=== PATIENT | female | born 1980 | race African-American/Black ===

== ENCOUNTER 2017-05-01 13:23 | Inpatient (IN) | payer SELFPAY ==
[2017-05-01 13:45] LABS: #Lymphocytes 1.1 thou/uL (1.20-3.40); #Monocytes 0.3 thou/uL (0.11-0.59); #Neutrophils 5.4 thou/uL (1.40-6.50); %Basophils 0.2 % (0.0-1.0); %Eosinophils 0.2 % (0.0-10.0); %Lymphocytes 16.3 % (21.0-51.0); %Monocytes 3.8 % (0.0-10.0); Hematocrit 38.2 % (36.0-47.0); Mean Platelet Volume 9.7 fL (7.4-10.4); Red Blood Cell (RBC) Count 4.84 mill/uL (4.20-5.40); White Blood Cell (WBC) Count 6.8 thou/uL (4.8-10.8)
[2017-05-01 14:15] LABS: Troponin I 0.017 ng/mL (< 0.028)
[2017-05-01 14:29] LABS: Lactic Acid - Sepsis 1.9 mmol/L (0.5-2.2)
--- NOTE | 2017-05-01 14:29 | RAD ---
PORTABLE CHEST ONE VIEW: Date: 05-01-17 Time: 1:40 p.m. History: Chest pain, abdominal pain, nausea. FINDINGS: Comparison made with exam of 10-24-16. The heart size is normal. The lungs are expanded without focal areas of consolidation, pneumothorax or pleural effusions. IMPRESSION: No radiographic evidence of acute cardiopulmonary process. POS: OFF
[2017-05-01 14:30] LABS: ALT (SGPT) 13 U/L (8-55); AST (SGOT) 15 U/L (5-34); Alkaline Phosphatase 78 U/L (40-150); Anion Gap 15 mmol/L (10-20); BUN (Urea Nitrogen) 8 mg/dL (7.0-18.7); Bilirubin, Total 0.6 mg/dL (0.2-1.2); CK (CPK) 124 U/L (29-168); Calc. Creatinine Clearance 0 mL/min (70-130); Calcium 9.3 mg/dL (7.8-10.44); Carbon Dioxide 25 mmol/L (22-29); Chloride 94 mmol/L (98-107); Estimated GFR-MDRD 79; Globulin 4.1 g/dL (2.4-3.5); Lipase 6 U/L (8-78); Protein, Total 7.9 g/dL (6.0-8.3)
[2017-05-01] MEDS ORDERED: Ketorolac Tromethamine 30 MG/ML VIAL ONE (14:59)
[2017-05-01] MEDS ORDERED: Acetaminophen 500 MG TAB ONE (15:07)
[2017-05-01 15:29] LABS: Bilirubin Negative (Negative); Blood, Urine Large (Negative); Glucose, Urine (Dipstick) 100 mg/dL (Negative); Ketone, Urine Negative (Negative); Nitrite Positive (Negative); Protein, Urine (Dipstick) 100 mg/dL (Neg-Trace)
[2017-05-01 15:35] LABS: Bacteria/HPF 4+ HPF (None Seen); Hyaline Casts/LPF 0-3 HYALINE CAST LPF (0-3 Hyaline); RBC/HPF 21-50 HPF (0-3); Squamous Epithelial 0-3 HPF (0-3); WBC/HPF 0-3 HPF (0-3)
[2017-05-01] MEDS ORDERED: Sodium Chloride 0.9% 100 ML ONE (16:29)
[2017-05-01] MEDS ORDERED: cefTRIAXone\\ROCEPHIN 1 GM VIAL ONE (16:29)
[2017-05-01] MEDS ORDERED: Acetaminophen 650 MG Suppository PR PRN (16:44)
[2017-05-01] MEDS ORDERED: cefTRIAXone\\ROCEPHIN 1 GM in Sodium Chloride 0.9% 100 ML IVPB SCH (17:00)
[2017-05-01] MEDS ORDERED: Dextrose 50% Abboject 50 ML SYRINGE SLOW IVP PRN (17:15)
[2017-05-01] MEDS ORDERED: Dextrose 5% in Water 1,000 ML IV PRN (17:15)
--- NOTE | 2017-05-01 17:43 | HP ---
PRIMARY CARE PROVIDER: [facility] in [place]. CHIEF COMPLAINT: Fever. HISTORY OF PRESENT ILLNESS: Ms. Baig is a pleasant 36-year-old lady who was seen at [facility]. She reports that yesterday she developed throbbing headache, chest discomfort and fevers. In terms of the headache, she reports that it was a global, not accompanied by photoph obia or phonophobia, nonradiating, 10/10 at its worst, now resolved. At that time, she had no known aggravating or relieving factors. In terms of chest discomfort, she reports having thumping sensation in the chest, on and off, nonrad iating, no known aggravating or relieving factors. The chest discomfort has resolved as well. In terms of fevers, she reports that she had a temperature of 103 to 103.9 degrees Fahrenheit. She reports that it started yesterday and has been on and off since yesterday. She denies any cough. S he denies any skin rashes. She denies any pain in her neck. She denies any sick contacts. She rep orts foul smelling urine. She denies any nausea, vomiting, or diarrhea. She reports having some ab dominal discomfort yesterday, but that has resolved as well. The following complete review of systems was negative, unless otherwise mentioned in the HPI or belo w: Constitutional: Weight loss or gain, sense of well-being, ability to conduct usual activities, exer cise tolerance. Skin/Breast: Rash, itching, changes in hair growth or loss, nail changes, breast lumps, tenderness, swelling, nipple discharge. Eyes: Vision, double vision, tearing, blind spots, pain. ENT/Mouth: Headaches (location, time of onset, duration, precipitating factors), vertigo, lightheadedness, injury. Vision, double vision, tearing, blind spots, pain, nose bleeding, colds, obstruction, discharge, dental difficulties, gingival bleeding, dentures, neck stif fness, pain, tenderness, masses in thyroid or other areas. Cardiovascular: Precordial pain, substernal distress, palpitations, syncope, dyspnea on exertion, o rthopnea, nocturnal paroxysmal dyspnea, edema, cyanosis, hypertension, heart murmurs, varicosities, phlebitis, claudication. Respiratory: Pain, shortness of breath, wheezing, stridor, cough, hemoptysis, fever or night sweats Gastrointestinal: Poor appetite, dysphagia, indigestion, abdominal pain, heartburn, eructation, [place], vomiting, hematemesis, jaundice, constipation, or diarrhea, abnormal stools (libertad-colored, philly y, bloody, greasy, foul smelling), flatulence, hemorrhoids, recent changes in bowel habits. Genitourinary: Urgency, frequency, dysuria, nocturia, hematuria, polyuria, oliguria, unusual (or ch joseph in) color of urine, stones, hesitancy, change in size of stream, dribbling, acute retention or incontinence, libido, potency. Musculoskeletal: Pain, swelling, redness or heat of muscles or joints, limitation, of motion, muscu lar weakness, atrophy, cramps. Neurologic/Psychiatric: Convulsions, paralyses, tremor, incoordination, parasthesias, difficulties with memory of speech, sensory or motor disturbances, or muscular coordination (ataxia, tremor), emo tional problems, anxiety, depression, previous psychiatric care, unusual perceptions, hallucinations . Allergy/Immunologic: Skin rash, anemia, bleeding tendency, polydipsia, polyuria, intolerance to hea t or cold. PAST MEDICAL HISTORY: Significant for diabetes mellitus type 2, dyslipidemia, morbid obesity, hyper tension, hepatitis B, and depression. PAST SURGICAL HISTORY: Significant for status post cholecystectomy, status post tonsillectomy, stat us post nasal surgery for obstructive sleep apnea syndrome. FAMILY HISTORY: Significant for diabetes mellitus and hypertension. ALLERGIES: ACETAMINOPHEN. CURRENT MEDICATIONS: Metformin 1000 mg 2 times a day; lisinopril 20 mg daily; Humulin 70/30 insulin , dose to be clarified. SOCIAL HISTORY: The patient denies tobacco use, alcohol use or recreational drug use. PHYSICAL EXAMINATION: GENERAL: Ms. Baig is awake and alert, not in acute distress. She is morbidly obese. VITAL SIGNS: Blood pressure is 120/87, pulse is 93. She is breathing at rate of 20 and saturating 95% on room air. Her current temperature is 99.7 degrees Fahrenheit. When she presented to the [facility] room, she had a pulse of 112 and temperature of 101.2 degrees Fahrenheit. EYES: No scleral icterus. No conjunctival pallor. ENT: Dry mucosal membranes, no oropharyngeal erythema or exudates. NECK: Supple, nontender, normal range of movement, trachea is midline. RESPIRATORY: Accessory muscles of breathing are not active. Chest wall movements are symmetric antonio aterally. LUNGS: Clear to auscultation without wheeze, rhonchi or crepitations. CARDIOVASCULAR: S1 and S2 are heard, regular. Peripheral pulses palpable. No pericardial rub, no carotid bruit. ABDOMEN: Distended, nontender, bowel sounds heard, no hepatomegaly, no splenomegaly. NEUROLOGIC: Cranial nerves II-XII are intact. Deep tendon reflexes are 2+. MUSCULOSKELETAL: Power is 5/5 in all 4 extremities. Normal range of movement at all major extremit y joints. SKIN: No rashes or subcutaneous nodules. LYMPHATIC: No cervical lymphadenopathy. PSYCHIATRIC: Normal mood. Normal affect. Patient is oriented to time, place, and person. LABORATORY DATA: Ms. Baig's labs and investigations were reviewed. She had a chest x-ray, which di d not show any pulmonary infiltrates. Laboratory investigation shows normal white count, normal hem oglobin, normal platelet count, decreased sodium of 130, normal creatinine of 0.97 and unremarkable liver profile. Troponin I is normal. Urinalysis shows protein, glucose, blood, nitrite and bacteri a. ASSESSMENT AND PLAN: Ms. Baig is a pleasant 36-year-old lady who was seen at [facility] on 05/01/2017. Her problem list includes: 1. Sepsis: Ms. Baig's presentation meets the criteria for sepsis, suspected source of infection in the urinary tract. 2. Urinary tract infection. Ms. Baig will be admitted to the hospital and treated with fluid resus citation as well as intravenous antibiotics in the form of ceftriaxone. 3. Diabetes mellitus. Home medications to be resumed once clarified, insulin sliding scale to be s tarted. Accu-Cheks to be started. 4. Hypertension: Continue home medications, monitor vital signs and titrate antihypertensives as n eeded. 5. Dyslipidemia: It is unclear whether the patient is taking a statin now. We will resume once cl arified. Otherwise, she will need to follow up with her primary care provider and start medication if needed. 6. Hepatitis B: Stable. Many thanks for allowing me to participate in your patient's care. Please feel free to contact me w ith any questions or concerns. LEVEL OF RISK: Moderate. LEVEL OF COMPLEXITY: Moderate.
[2017-05-01] MEDS: Sodium Chloride 0.9% 1,000 ML IV SCH (18:26)
[2017-05-01 18:37] VITALS: BMI 53.2
[2017-05-01] MEDS ORDERED: Ondansetron HCl/PF 4 MG/2 ML Vial IVP PRN (18:40)
[2017-05-01] MEDS ORDERED: Ondansetron ODT 4 MG TAB SL PRN (18:40)
[2017-05-01] MEDS: Acetaminophen 325 MG TAB PO PRN (19:58)
[2017-05-01] MEDS: Pravastatin Sodium 40 MG TAB PO SCH (19:58)
[2017-05-01] MEDS: Metoprolol Tartrate 25 MG TAB PO SCH (19:59)
[2017-05-01] MEDS: HumaLOG 300 UNITS/3 ML VIAL SC PRN (21:35)
[2017-05-02] MEDS: Acetaminophen 325 MG TAB PO PRN ×2 (02:23→15:25)
[2017-05-02] MEDS: traMADol HCl 50 MG TAB PO PRN ×2 (05:09→12:27)
[2017-05-02] MEDS: Sodium Chloride 0.9% 1,000 ML IV SCH ×2 (05:10→15:52)
[2017-05-02 05:43] LABS: #Eosinphils 0.1 thou/uL (0.0-0.7); #Monocytes 0.2 thou/uL (0.11-0.59); #Neutrophils 4.8 thou/uL (1.40-6.50); %Basophils 0.6 % (0.0-1.0); %Eosinophils 0.8 % (0.0-10.0); %Monocytes 3.9 % (0.0-10.0); Hematocrit 33.8 % (36.0-47.0); Mean Platelet Volume 9.9 fL (7.4-10.4); Red Blood Cell (RBC) Count 4.22 mill/uL (4.20-5.40); White Blood Cell (WBC) Count 6.1 thou/uL (4.8-10.8)
[2017-05-02 05:55] LABS: Anion Gap 14 mmol/L (10-20); BUN (Urea Nitrogen) 11 mg/dL (7.0-18.7); Calc. Creatinine Clearance 188 mL/min (70-130); Calcium 8.5 mg/dL (7.8-10.44); Carbon Dioxide 20 mmol/L (22-29); Chloride 101 mmol/L (98-107); Estimated GFR-MDRD 84
[2017-05-02] MEDS: HumaLOG 300 UNITS/3 ML VIAL SC PRN ×3 (06:06→17:30)
[2017-05-02] MEDS ORDERED: NPH, Human Insulin Isophane 300 UNIT/3 ML VIAL SC SCH (09:00)
[2017-05-02] MEDS: Metoprolol Tartrate 25 MG TAB PO SCH ×2 (09:35→21:30)
[2017-05-02] MEDS: Enoxaparin Sodium 40 MG/0.4 ML SYRINGE SC SCH (09:35)
[2017-05-02] MEDS: Lisinopril/Hydrochlorothiazide 20/25 mg Tablet PO SCH (11:52)
--- NOTE | 2017-05-02 15:17 | PDOC.PN ---
- Subjective Encounter Start Date: 05/02/17 Encounter Start Time: 12:30 Subjective: feels better, no nausea or abd pain - Objective MAR Reviewed: Yes Vital Signs & Weight: Vital Signs (12 hours) Temp Pulse Resp BP Pulse Ox 05/02/17 07:36 98.3 F 85 18 151/94 H 94 L 05/02/17 04:00 98.5 F 84 18 144/85 H 94 L Result Diagrams: 05/02/17 04:56 05/02/17 04:56 Additional Labs: Accuchecks 05/02/17 05/02/17 05/01/17 12:30 05:43 21:25 POC Glucose 233 H 257 H 331 H Phys Exam - Physical Examination HEENT: PERRLA, moist MMs Neck: no nodes, no JVD Respiratory: no wheezing, no rales Cardiovascular: RRR, no significant murmur Gastrointestinal: soft, non-tender, no distention, positive bowel sounds Musculoskeletal: no edema, pulses present Neurological: non-focal, moves all 4 limbs Psychiatric: A&O x 3 Dx/Plan (1) Sepsis Code(s): A41.9 - SEPSIS, UNSPECIFIED ORGANISM Status: Acute Qualifiers: Sepsis type: sepsis due to unspecified organism Qualified Code(s): A41.9 - Sepsis, unspecified organism (2) UTI (urinary tract infection) Status: Acute Qualifiers: Urinary tract infection type: acute cystitis Hematuria presence: without hematuria Qualified Code(s): N30.00 - Acute cystitis without hematuria (3) DM type 2 (diabetes mellitus, type 2) Status: Chronic Qualifiers: Diabetes mellitus complication status: with hyperglycemia 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: with petroleum products district supervisor use Qualified Code(s): E11.65 - Type 2 diabetes mellitus with hyperglycemia; Z79.4 - sales/marketing (current) use of insulin; Z79.4 - MCC (current) use of insulin; Z79.4 - MCC ( current) use of insulin; Z79.4 - sales/marketing (current) use of insulin (4) Morbid obesity Code(s): E66.01 - MORBID (SEVERE) OBESITY DUE TO EXCESS CALORIES Status: Chronic (5) HTN (hypertension) Code(s): I10 - ESSENTIAL (PRIMARY) HYPERTENSION Status: Chronic Qualifiers: Hypertension type: essential hypertension Qualified Code(s): I10 - Essential (primary) hypertension - Plan is on ceftrixone -: await urine cs results -: nph 40u bid -: has life threatening obesity, counselled reg lifestyle changes, diet and ex -: -ercises. Has h/o hep B, she is not sure if got treated * . Review of Systems - Medications/Allergies Allergies/Adverse Reactions: Allergies Allergy/AdvReac Type Severity Reaction Status Date / Time No Known Allergies Allergy Verified 05/01/17 18:31 Medications: Current Medications Acetaminophen (Tylenol) 650 mg PO Q4H PRN PRN Reason: Headache/Fever or Pain Last Admin: 05/02/17 02:23 Dose: 650 mg Acetaminophen (Tylenol) 650 mg WI Q4H PRN PRN Reason: Headache/Fever or Pain Dextrose/Water (Dextrose 50%) 25 gm SLOW IVP PRN PRN PRN Reason: Hypoglycemia Enoxaparin Sodium (Lovenox) 40 mg SC 0900 [facility] Last Admin: 05/02/17 09:35 Dose: 40 mg Glucagon (Glucagon) 1 mg IM PRN PRN PRN Reason: Hypoglycemia Lisinopril/HCTZ (Prinizide 20-25) 1 tab PO DAILY [facility] Last Admin: 05/02/17 11:52 Dose: 1 tab Sodium Chloride (Normal Saline 0.9%) 1,000 mls @ 100 mls/hr IV .Q10H [facility] Last Admin: 05/02/17 05:10 Dose: 1,000 mls Dextrose/Water (D5w) 1,000 mls @ 0 mls/hr IV .Q0M PRN; As Directed PRN Reason: Hypoglycemia Ceftriaxone Sodium 1 gm/ (Sodium Chloride) 100 mls @ 200 mls/hr IVPB Q24HR [facility] Insulin Human Lispro (Humalog) 0 units SC .MILD SLIDING SCALE PRN PRN Reason: Mild Correctional Scale Last Admin: 05/02/17 12:31 Dose: 4 unit Insulin Human NPH (Humulin N) 40 unit SC BID [facility] Metformin HCl (Glucophage) 1,000 mg PO BID-WM [facility] Last Admin: 05/02/17 09:35 Dose: 1,000 mg Metoprolol Tartrate (Lopressor) 25 mg PO BID [facility] Last Admin: 05/02/17 09:35 Dose: 25 mg Pravastatin Sodium (Pravachol) 40 mg PO HS [facility] Last Admin: 05/01/17 19:58 Dose: 40 mg Sodium Chloride (Flush - Normal Saline) 10 ml IVF Q12HR [facility] Last Admin: 05/02/17 11:53 Dose: Not Given Sodium Chloride (Flush - Normal Saline) 10 ml IVF PRN PRN PRN Reason: Saline Flush Tramadol HCl (Ultram) 50 mg PO Q6H PRN PRN Reason: Pain Last Admin: 05/02/17 12:27 Dose: 50 mg
[2017-05-02 16:32] LABS: Troponin I 0.015 ng/mL (< 0.028)
[2017-05-02] MEDS: Morphine Sulfate 2 MG/ML SYRINGE SLOW IVP PRN ×2 (16:38→21:34)
[2017-05-02] MEDS ORDERED: cefTRIAXone\\ROCEPHIN 1 GM VIAL ONE (16:40)
[2017-05-02] MEDS ORDERED: cefTRIAXone\\ROCEPHIN 1 GM in Sodium Chloride 0.9% 100 ML IVPB SCH (17:00)
[2017-05-02 19:10] LABS: Troponin I 0.012 ng/mL (< 0.028)
[2017-05-02] MEDS: Pravastatin Sodium 40 MG TAB PO SCH (21:30)
[2017-05-02] MEDS: NPH, Human Insulin Isophane 300 UNIT/3 ML VIAL SC SCH (21:32)
[2017-05-03] MEDS: Morphine Sulfate 2 MG/ML SYRINGE SLOW IVP PRN (03:16)
[2017-05-03 05:59] LABS: #Eosinphils 0.1 thou/uL (0.0-0.7); #Lymphocytes 2.1 thou/uL (1.20-3.40); #Monocytes 0.4 thou/uL (0.11-0.59); #Neutrophils 2.5 thou/uL (1.40-6.50); %Basophils 0.2 % (0.0-1.0); %Eosinophils 1.6 % (0.0-10.0); %Lymphocytes 41.5 % (21.0-51.0); %Monocytes 7.5 % (0.0-10.0); Mean Platelet Volume 9.8 fL (7.4-10.4); Red Blood Cell (RBC) Count 4.24 mill/uL (4.20-5.40)
[2017-05-03 06:24] LABS: Anion Gap 13 mmol/L (10-20); BUN (Urea Nitrogen) 8 mg/dL (7.0-18.7); Calc. Creatinine Clearance 213 mL/min (70-130); Calcium 9.2 mg/dL (7.8-10.44); Carbon Dioxide 25 mmol/L (22-29); Chloride 100 mmol/L (98-107); Estimated GFR-MDRD Greater than 90
[2017-05-03 07:51] VITALS: TEMP 99
[2017-05-03] MEDS: Enoxaparin Sodium 40 MG/0.4 ML SYRINGE SC SCH (08:04)
[2017-05-03] MEDS: Lisinopril/Hydrochlorothiazide 20/25 mg Tablet PO SCH (08:05)
[2017-05-03] MEDS: Metoprolol Tartrate 25 MG TAB PO SCH (08:05)
[2017-05-03] MEDS: NPH, Human Insulin Isophane 300 UNIT/3 ML VIAL SC SCH (08:05)
[2017-05-03 08:11] VITALS: BP 120/73
--- NOTE | 2017-05-03 16:50 | PDOC.PN ---
- Subjective Encounter Start Date: 05/03/17 Encounter Start Time: 07:50 Subjective: feels better, no abd or chest pain -: is amb in room - Objective MAR Reviewed: Yes Vital Signs & Weight: Vital Signs (12 hours) Temp Pulse Resp BP BP Pulse Ox 05/03/17 08:05 120/73 05/03/17 08:00 99 F 79 16 96 05/03/17 07:50 99 F 79 16 118/78 96 I&O: 05/02/17 05/03/17 05/04/17 06:59 06:59 06:59 Intake Total 720 Balance 720 Result Diagrams: 05/03/17 05:24 05/03/17 05:24 Additional Labs: Accuchecks 05/03/17 05/03/17 05/02/17 10:58 05:04 20:38 POC Glucose 152 H 158 H 167 H 05/02/17 16:30 POC Glucose 183 H Phys Exam - Physical Examination HEENT: PERRLA, moist MMs Neck: no JVD, supple Respiratory: no wheezing, no rales Cardiovascular: RRR, no significant murmur Gastrointestinal: soft, non-tender, positive bowel sounds Musculoskeletal: no edema, pulses present Neurological: non-focal, moves all 4 limbs Psychiatric: A&O x 3 Dx/Plan (1) Sepsis Code(s): A41.9 - SEPSIS, UNSPECIFIED ORGANISM Status: Acute Qualifiers: Sepsis type: sepsis due to unspecified organism Qualified Code(s): A41.9 - Sepsis, unspecified organism (2) UTI (urinary tract infection) Status: Acute Qualifiers: Urinary tract infection type: acute cystitis Hematuria presence: without hematuria Qualified Code(s): N30.00 - Acute cystitis without hematuria (3) DM type 2 (diabetes mellitus, type 2) Status: Chronic Qualifiers: Diabetes mellitus complication status: with hyperglycemia Diabetes mellitus snf insulin use: with oysterman use Qualified Code(s): E11.65 - Type 2 diabetes mellitus with hyperglycemia; Z79.4 - MCFP (current) use of insulin; 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 * .
--- NOTE | 2017-05-03 22:12 | DIS ---
DATE OF ADMISSION: 05/01/2017 DATE OF DISCHARGE: 05/03/2017 DISCHARGE DISPOSITION: To home. PRIMARY DISCHARGE DIAGNOSES: Sepsis, urinary tract infection. SECONDARY DISCHARGE DIAGNOSES: Morbid obesity, diabetes mellitus type 2, hypertension. PROCEDURES DONE DURING HOSPITALIZATION: Chest x-ray done on the day of admission showed no acute ca rdiopulmonary process. Urine culture grew Enterobacter aerogenes sensitive to quinolones. Influenz a A and B antigens were negative. Blood cultures x2 no growth. DISCHARGE MEDICATIONS: Patient to continue ciprofloxacin 500 mg p.o. twice daily for another 5 days , NPH insulin 70/30, 35 units subcu twice daily, lisinopril with hydrochlorothiazide 20/25 mg p.o. d aily, metoprolol 25 mg p.o. twice daily, Pravachol 40 mg p.o. at bedtime, metformin 1000 mg p.o. twi ce daily. ALLERGIES: No known drug allergies. DISCHARGE PLAN: Patient to follow up with primary care physician in 1 week. BRIEF COURSE DURING HOSPITALIZATION: The patient initially got admitted on the with complaints of fever. She had a temperature of 103 at home. Patient also was found to have had urinary tract infection. She was essentially admitted for sepsis with urinary tract infection. The patient was p laced on broad-spectrum antibiotics along with generous IV hydration. Her cultures have grown Enter obacter aerogenes sensitive to quinolones. The patient is hemodynamically stable and will be shortl y discharged home on ciprofloxacin. She has been counseled with regards to her morbid obesity for l ifestyle changes and diet modification, along with a possible outpatient appointment with the [facility] surgeon to see for ways to reduce her weight. Please see a [id number] documentation on [facility] for the day of discharge.
== END 2017-05-03 12:03 | disposition home or self-care (01) | DRG 872 ==
LOC: ERS 13:23 → T4-B 16:26
PROVIDERS: ADMIT Internal Medicine; ATTEND Internal Medicine
DX: A41.9 Sepsis, unspecified organism (principal); Z68.43 Body mass index [BMI] 50.0-59.9, adult; I10 Essential (primary) hypertension; N30.00 Acute cystitis without hematuria; B19.10 Unspecified viral hepatitis B without hepatic coma; B96.89 Other specified bacterial agents as the cause of diseases classified elsewhere; E66.01 Morbid (severe) obesity due to excess calories; E11.9 Type 2 diabetes mellitus without complications; Z79.4 Long term (current) use of insulin; E78.5 Hyperlipidemia, unspecified; F32.9 Major depressive disorder, single episode, unspecified
CPT/HCPCS: 36415; 36416; 71010; 80048; 80053; 80074; 81003; 81015; 81025; 82553; 83605; 83690; 84484; 85025; 87040; 87077; 87086; 87186; 93005; 93010; 96361; 96365; 96375; A4216; J0696; J1650; J1815; J1885; J2270; J2405; J7050

== ENCOUNTER 2017-10-10 21:19 | Emergency (ER) | payer SELFPAY ==
[2017-10-10 21:44] LABS: Bilirubin Negative (Negative); Blood, Urine Negative (Negative); Clarity CLEAR (Clear); Glucose, Urine (Dipstick) >=1000 mg/dL (Negative); Leukocyte Negative (Negative); Nitrite Negative (Negative); Pregnancy Test - Urine (BHCG) Negative (Negative); Pregu Control Background? CLEAR/WHITE (CLR/WHITE); Pregu Control Bar Appear? YES (CONTROL BAR); Protein, Urine (Dipstick) Negative (Neg-Trace); Specific Gravity 1.033 (1.002-1.036); Specific Gravity, Urine 1.033 (1.002-1.036); pH, Urine 6.5 (5.0-9.0)
[2017-10-10 21:45] LABS: #Basophils 0.1 thou/uL (0.0-0.2); #Eosinphils 0.2 thou/uL (0.0-0.7); #Lymphocytes 3.6 thou/uL (1.20-3.40); #Monocytes 0.2 thou/uL (0.11-0.59); #Neutrophils 4.2 thou/uL (1.40-6.50); %Basophils 1.3 % (0.0-1.0); %Eosinophils 2.9 % (0.0-10.0); %Lymphocytes 43.1 % (21.0-51.0); %Monocytes 2.3 % (0.0-10.0); %Neutrophils 50.4 % (42.0-75.0); Hemoglobin 12.4 g/dL (12.0-16.0); Mean Corpuscular HGB CONC 35.2 g/dL (32.0-36.0); Mean Corpuscular Hemoglobin 26.7 pg (27.0-31.0); Mean Corpuscular Volume 75.9 fl (81.0-99.0); Mean Platelet Volume 9.6 fL (7.4-10.4); Platelet Count 179 thou/uL (130-400); RBC Distribution Width 15.2 % (11.5-14.5); Red Blood Cell (RBC) Count 4.64 mill/uL (4.20-5.40); White Blood Cell (WBC) Count 8.2 thou/uL (4.8-10.8)
[2017-10-10 22:12] LABS: CKMB 1.3 ng/mL (0-6.6); Troponin I Less than 0.010 ng/mL (< 0.028)
[2017-10-10 22:29] LABS: ALT (SGPT) 13 U/L (8-55); AST (SGOT) 16 U/L (5-34); Albumin 3.8 g/dL (3.5-5.0); Alkaline Phosphatase 93 U/L (40-150); Anion Gap 12 mmol/L (10-20); BUN (Urea Nitrogen) 9 mg/dL (7.0-18.7); Bilirubin, Total 0.3 mg/dL (0.2-1.2); Calc. Creatinine Clearance 0 mL/min (70-130); Calcium 9.5 mg/dL (7.8-10.44); Carbon Dioxide 27 mmol/L (22-29); Chloride 95 mmol/L (98-107); Estimated GFR-MDRD 71; Glucose 398 mg/dL (70-105); Lipase 15 U/L (8-78); Potassium 4.1 mmol/L (3.5-5.1); Protein, Total 8.8 g/dL (6.0-8.3); Sodium 130 mmol/L (136-145)
--- NOTE | 2017-10-10 22:40 | RAD ---
RADIOGRAPH CHEST 2 VIEWS: 10/10/17 HISTORY: 37-year-old female with acute chest pain. FINDINGS: There is no air space density, pulmonary edema, pleural effusion, pneumothorax, or cardiomegaly. IMPRESSION: No acute cardiopulmonary findings. quique [] POS: NGOZI
[2017-10-11] MEDS ORDERED: Insulin Detemir 100 UNITS/ML 40 UNITS in Pre-Filled Syringe 1 EACH SC SCH (01:45)
== END 2017-10-11 02:28 | disposition home or self-care (01) ==
LOC: ERS 21:19
DX: R07.9 Chest pain, unspecified (principal); E11.65 Type 2 diabetes mellitus with hyperglycemia; I10 Essential (primary) hypertension; E78.5 Hyperlipidemia, unspecified; K72.90 Hepatic failure, unspecified without coma; F32.9 Major depressive disorder, single episode, unspecified
CPT/HCPCS: 36415; 71046; 80053; 81003; 81025; 82553; 83690; 84484; 85025; 93005; 96372; J1815

== ENCOUNTER 2017-12-22 13:02 | Emergency (ER) | payer SELFPAY ==
[2017-12-22] MEDS ORDERED: Ondansetron ODT 8 MG TAB ONE (13:33)
[2017-12-22 14:43] LABS: Troponin I Less than 0.010 ng/mL (< 0.028)
== END 2017-12-22 14:47 | disposition home or self-care (01) ==
LOC: ERS 13:02
DX: I10 Essential (primary) hypertension (principal); K02.9 Dental caries, unspecified; Z86.73 Personal history of transient ischemic attack (TIA), and cerebral infarction without residual deficits; E11.9 Type 2 diabetes mellitus without complications; E78.5 Hyperlipidemia, unspecified; F32.9 Major depressive disorder, single episode, unspecified
CPT/HCPCS: 36415; 99285

== ENCOUNTER 2018-05-01 17:12 | Observation (INO) | payer SELFPAY ==
[~2018-05-01 17:12] MED LIST: ISOVUE-370 76%-LOCM 1 ML ONE
[2018-05-01] MEDS ORDERED: Ondansetron HCl/PF 4 MG/2 ML Vial ONE (17:55)
[2018-05-01] MEDS ORDERED: methylPREDNISolone Sod Succ/PF 125 MG/2 ML VIAL ONE (17:55)
[2018-05-01 18:47] LABS: #Eosinphils 0.2 thou/uL (0.0-0.7); #Lymphocytes 1.5 thou/uL (1.20-3.40); #Monocytes 0.2 thou/uL (0.11-0.59); #Neutrophils 6.4 thou/uL (1.40-6.50); %Basophils 0.2 % (0.0-1.0); %Eosinophils 1.8 % (0.0-10.0); %Lymphocytes 18.5 % (21.0-51.0); %Monocytes 2.3 % (0.0-10.0); %Neutrophils 77.2 % (42.0-75.0); Hemoglobin 12.9 g/dL (12.0-16.0); Mean Corpuscular HGB CONC 32.5 g/dL (32.0-36.0); Mean Corpuscular Hemoglobin 25.1 pg (27.0-31.0); Mean Corpuscular Volume 77.4 fL (78.0-98.0); Mean Platelet Volume 9.6 fL (7.4-10.4); Platelet Count 211 thou/uL (130-400); RBC Distribution Width 15.1 % (11.5-14.5); Red Blood Cell (RBC) Count 5.14 mill/uL (4.20-5.40); White Blood Cell (WBC) Count 8.3 thou/uL (4.8-10.8)
[2018-05-01 18:53] LABS: BHCG - Serum Negative (NEGATIVE); Pregs Control Background? CLEAR/WHITE (CLR/WHITE); Pregs Control Bar Appear? YES (CONTROL BAR)
[2018-05-01 19:13] LABS: ALT (SGPT) 14 U/L (8-55); AST (SGOT) 33 U/L (5-34); Albumin 4.3 g/dL (3.5-5.0); Alkaline Phosphatase 86 U/L (40-150); Anion Gap 20 mmol/L (10-20); BUN (Urea Nitrogen) 12 mg/dL (7.0-18.7); Bilirubin, Total 0.4 mg/dL (0.2-1.2); Calc. Creatinine Clearance 0 mL/min (70-130); Calcium 9.9 mg/dL (7.8-10.44); Carbon Dioxide 22 mmol/L (22-29); Chloride 97 mmol/L (98-107); Estimated GFR-MDRD 72; Globulin 5.3 g/dL (2.4-3.5); Glucose 315 mg/dL (70-105); Potassium 4.7 mmol/L (3.5-5.1); Protein, Total 9.6 g/dL (6.0-8.3); Sodium 134 mmol/L (136-145); Troponin I Less than 0.010 ng/mL (< 0.028)
[2018-05-01] MEDS ORDERED: hydrALAZINE 20 MG/ML VIAL ONE ×2 (19:45→21:08)
--- NOTE | 2018-05-01 20:51 | RAD ---
AP CHEST: 05/01/18 HISTORY: Chest pain and cough. COMPARISON: 05/01/17. Heart size is upper normal. The vascular markings are prominent but stable from prior exam. No eviden ce of infiltrate or effusion. No interval change noted. IMPRESSION: Stable chest findings without evidence of acute interval change. POS: AGW
[2018-05-01] MEDS ORDERED: diphenhydrAMINE 12.5 MG/5 ML UDCUP ONE (21:08)
[2018-05-01] MEDS ORDERED: Metoclopramide HCl 10 MG/2 ML VIAL ONE (21:08)
[2018-05-01] MEDS ORDERED: diphenhydrAMINE 25 MG CAP ONE (21:12)
[2018-05-01 21:35] LABS: Bilirubin Negative (Negative); Blood, Urine Trace (Negative); Clarity CLOUDY (Clear); Glucose, Urine (Dipstick) >=1000 mg/dL (Negative); Leukocyte Negative (Negative); Nitrite Negative (Negative); Protein, Urine (Dipstick) 30 mg/dL (Neg-Trace); Specific Gravity, Urine 1.034 (1.002-1.036)
[2018-05-01 21:37] LABS: Pregnancy Test - Urine (BHCG) Negative (Negative); Pregu Control Background? CLEAR/WHITE (CLR/WHITE); Pregu Control Bar Appear? YES (CONTROL BAR); Specific Gravity 1.034 (1.002-1.036)
[2018-05-01 21:44] LABS: Bacteria/HPF 4+ HPF (None Seen); Hyaline Casts/LPF 0-3 HYALINE CAST LPF (0-3 Hyaline); Pathc Cast-AUWi Flag 0.43 (0-2.49); RBC/HPF 0-3 HPF (0-3); Squamous Epithelial 0-3 HPF (0-3)
[2018-05-01] MEDS ORDERED: cloNIDine 0.1 MG TAB ONE (22:24)
[2018-05-01] MEDS ORDERED: cefTRIAXone\\ROCEPHIN 2 GM VIAL ONE (22:24)
--- NOTE | 2018-05-01 23:11 | CT ---
CT PULMONARY ANGIOGRAM WITH IV CONTRAST AND 3D POSTPROCESSIN05/01/18 HISTORY: Chest pain. Shortness of breath. FINDINGS: No filling defects are seen in the pulmonary artery vasculature to suggest pulmonary embolism. The th oracic aorta is also well opacified without aneurysm or dissection. No pleural or pericardial effusio ns are seen. No pneumothoraces, focal areas of consolidation, lung masses/pulmonary nodules are seen. No acute osseous abnormalities are identified. Upper abdominal tomograms demonstrate postop changes of cholecystectomy. IMPRESSION: No CT evidence of pulmonary embolism. POS: [facility]
[2018-05-01 23:29] LABS: Troponin I Less than 0.010 ng/mL (< 0.028)
[2018-05-02] MEDS ORDERED: Ondansetron HCl/PF 4 MG/2 ML Vial IVP PRN (00:52)
[2018-05-02] MEDS ORDERED: Acetaminophen 325 MG TAB PO PRN (00:52)
[2018-05-02] MEDS ORDERED: Ondansetron ODT 4 MG TAB SL PRN (00:52)
[2018-05-02 01:27] VITALS: BMI 51.8
[2018-05-02 01:59] LABS: Troponin I Less than 0.010 ng/mL (< 0.028)
[2018-05-02] MEDS ORDERED: Dextrose 5% in Water 1,000 ML IV PRN (02:07)
[2018-05-02] MEDS ORDERED: Dextrose 50% Abboject 50 ML SYRINGE IVP PRN (02:07)
[2018-05-02] MEDS: HumaLOG 300 UNITS/3 ML VIAL SC PRN ×4 (02:34→17:00)
[2018-05-02] MEDS ORDERED: cloNIDine 0.1 MG TAB PO PRN (03:15)
[2018-05-02 05:09] LABS: #Eosinphils 0.1 thou/uL (0.0-0.7); #Lymphocytes 0.9 thou/uL (1.20-3.40); #Monocytes 0.1 thou/uL (0.11-0.59); #Neutrophils 8.3 thou/uL (1.40-6.50); %Basophils 0.2 % (0.0-1.0); %Eosinophils 0.6 % (0.0-10.0); %Lymphocytes 9.3 % (21.0-51.0); %Monocytes 0.6 % (0.0-10.0); %Neutrophils 89.3 % (42.0-75.0); Hemoglobin 11.8 g/dL (12.0-16.0); Mean Corpuscular HGB CONC 32.2 g/dL (32.0-36.0); Mean Corpuscular Hemoglobin 25.2 pg (27.0-31.0); Mean Corpuscular Volume 78.2 fL (78.0-98.0); Mean Platelet Volume 10.1 fL (7.4-10.4); Platelet Count 210 thou/uL (130-400); RBC Distribution Width 15.3 % (11.5-14.5); Red Blood Cell (RBC) Count 4.67 mill/uL (4.20-5.40); White Blood Cell (WBC) Count 9.3 thou/uL (4.8-10.8)
[2018-05-02 05:36] LABS: Anion Gap 18 mmol/L (10-20); BUN (Urea Nitrogen) 12 mg/dL (7.0-18.7); Calc. Creatinine Clearance 183 mL/min (70-130); Calcium 9.2 mg/dL (7.8-10.44); Carbon Dioxide 16 mmol/L (22-29); Chloride 100 mmol/L (98-107); Estimated GFR-MDRD 81; Glucose 453 mg/dL (70-105); Potassium 4.1 mmol/L (3.5-5.1); Sodium 130 mmol/L (136-145)
[2018-05-02] MEDS: Lisinopril/Hydrochlorothiazide 20 mg/12.5 mg Tablet PO SCH (08:41)
[2018-05-02] MEDS: Enoxaparin Sodium 40 MG/0.4 ML SYRINGE SC SCH (08:41)
[2018-05-02] MEDS: Insulin NPH/Reg Insulin Hm 300 UNITS/3 ML VIAL SC SCH ×2 (08:47→21:01)
[2018-05-02] MEDS ORDERED: Nitroglycerin 0.4 MG TAB (25 Tab Bottle) PO PRN (10:00)
--- NOTE | 2018-05-02 12:04 | HP ---
PRIMARY CARE PHYSICIAN: No PCP. CODE STATUS: Full code. TIME OF EVALUATION: 12:25 a.m. CHIEF COMPLAINT: Chest pain and headache. HISTORY OF PRESENT ILLNESS: This is a 37-year-old female with past medical history of high blood pre ssure, morbid obesity, diabetes type 2, hepatitis B, hyperlipidemia, hypertension, came to the hospit al after having chest pain, shortness of breath, associated with headache, all related to the patient having very high blood pressure was systolic in the 220s and diastolic in the 1-teens. The patient was seen in the ER, blood pressure was managed and brought down and the symptoms have improved now. The patient had no fever, no chills, also she was found to have very high blood sugar, she reported t hat for the past week she ran out of medications, has not been taking any medications at home. REVIEW OF SYSTEMS: CONSTITUTIONAL: No fever or chills or generalized weakness. RESPIRATORY: No cough, sputum production, shortness of breath. CARDIOVASCULAR: The patient had chest pain, no palpitation. GASTROINTESTINAL: No nausea, no vomiting, diarrhea or abdominal pain. SAFETY ASSISTANT: The patient has a headache, was feeling lightheaded GENITOURINARY: No burning on urination. EXTREMITIES: Bilateral leg swelling with chronic atrophic changes. All other systems were reviewed and negative except for the findings mentioned above. PAST MEDICAL HISTORY: Positive for findings mentioned in the HPI. PAST SURGICAL HISTORY: Cholecystectomy, tonsillectomy. PSYCHIATRIC HISTORY: Depression. SOCIAL HISTORY: No alcohol, no drugs. No smoking history. She lives at home with parent. FAMILY HISTORY: History of coronary artery disease, congestive heart failure. ALLERGIES: No known drug allergies. REPORTED MEDICATIONS: Lisinopril, hydrochlorothiazide and NovoLog mix 70/30. PHYSICAL EXAMINATION: VITAL SIGNS: On presentation, blood pressure 157/88, heart rate 117, respiratory rate 16, temperatur e 99.1, pain 8/10, O2 saturation 95 on room air. GENERAL APPEARANCE: The patient is alert, oriented, in no acute distress, alert and oriented. HEENT: Eyes; normal conjunctivae. Oral mucosa moist. NECK: No JVD. RESPIRATORY: Bilateral air entry, no rales or wheezes. Symmetric expansion. CARDIOVASCULAR: Normal rate, regular rhythm. No murmurs or gallop. No edema. ABDOMEN: Soft, normal bowel sounds. MUSCULOSKELETAL: Baseline range of motion and strength. No tenderness. SKIN: Warm and dry. No pallor, no rash or redness. Peripheral pulses are present. Capillary refil l seems to be intact. NEUROLOGIC: No evidence of any new focal weakness. Cranial nerves II through XII seems to be intact . PSYCHIATRIC: The patient is in a good mood. No anxiety, oriented, optimal judgment. EKG was reviewed. The patient has sinus tachycardia. RADIOLOGY: Chest CT was negative with contrast, no pulmonary emboli. LABORATORY: Labs were reviewed. The patient has a white count 9.3, hemoglobin 11.8, platelet count 211. Chemistry: Sodium 134, potassium 4.7, chloride 97, carbon dioxide 22, anion gap 20, BUN 12, cr eatinine 1.0, GFR 72, glucose 315, calcium 9.9, total bilirubin 0.4, AST 33, ALT 14, alkaline phospha tase 86. Troponin was negative x3. Serum total protein 9.6, albumin 4.3, globulin 5.3, albumin brittany bulin ratio 0.8. ____ was negative. UA was done and showed some mild white counts in urine 4-6. ASSESSMENT AND PLAN: The patient will be placed in the hospital for the following medical problems. 1. Hypertensive urgency. The patient came in with headache, chest pain, blood pressure in the 200 s ystolic and diastolic in the 1-teens. After blood pressure came down, all symptoms had disappeared. The patient has no elevated troponin, no brain damage from high blood pressure. No kidney failure, we will continue to monitor blood pressure and will adjust medications. Most likely this is due to n oncompliance. I have explained in detail with the patient regarding risk of not being compliant with medications. 2. Uncontrolled diabetes. Blood sugar 315 on presentation. The patient has been started on her maile e medications and sliding scale, this is likely due to noncompliance. 3. Hypertensive encephalopathy given headache associated with a very elevated blood pressure. All s ymptoms have resolved completely after blood pressure came down. 4. Possible urinary tract infection. The patient's urinalysis shows a white count 4-6. Urine cultu re has been sent, adjust medications until culture results. As of now, the patient is asymptomatic. 5. Deep venous thrombosis prophylaxis. 6. Morbid obesity. The patient has been advised to lose weight. 7. Hyperlipidemia, will need to increase ____ and statins, low cholesterol diet is advised.
--- NOTE | 2018-05-02 17:41 | PDOC.EVN ---
Event Note - Event Note Event Note: Chart reviewed, pt seen. Reports chest pain is better. Will check stress test due to cardiac risk factors.
[2018-05-03] MEDS ORDERED: Aspirin 325 MG TAB PO SCH (09:00)
[2018-05-03] MEDS ORDERED: Regadenoson 0.4 MG/5 ML SYRINGE ONE (10:38)
--- NOTE | 2018-05-03 12:14 | NM ---
NUCLEAR MEDICINE MYOCARDIAL PERFUSION EVALUATION: Date: 05/02/18 Reference made to prior scan dated 07/17/13. INDICATION: Chest pain. RADIOPHARMACEUTICAL: 31.8 mCi and 28.8 mCi technetium-99m sestamibi IV administered at stress and rest. FINDINGS: Utilizing attenuation correction stress and rest imaging, there is no significant fixed or reversible defect of the left ventricular shelby. Gated imaging reveals wall motion with a diminished contractil ity, with calculated LVEF at 44%. There is borderline prominence of the chamber size as well. IMPRESSION: 1. No significant ischemia or scar. 2. Diminished LVEF at 44% with prominence of the left ventricular chamber size. Recommend correlatio n with echocardiogram. POS: [facility]
[2018-05-03] MEDS: Insulin NPH/Reg Insulin Hm 300 UNITS/3 ML VIAL SC SCH (12:27)
[2018-05-03] MEDS: Lisinopril/Hydrochlorothiazide 20 mg/12.5 mg Tablet PO SCH (12:27)
[2018-05-03 12:51] LABS: Anion Gap 15 mmol/L (10-20); BUN (Urea Nitrogen) 16 mg/dL (7.0-18.7); Calc. Creatinine Clearance 181 mL/min (70-130); Calcium 8.9 mg/dL (7.8-10.44); Carbon Dioxide 21 mmol/L (22-29); Chloride 100 mmol/L (98-107); Estimated GFR-MDRD 80; Potassium 4.1 mmol/L (3.5-5.1); Sodium 132 mmol/L (136-145)
[2018-05-03 13:24] LABS: Glucose 320 mg/dL (70-105)
--- NOTE | 2018-05-03 14:48 | PDOC.PN ---
- Subjective Encounter Start Date: 05/03/18 Encounter Start Time: 14:48 Pt seen for followup re: chest pain. Denies nausea, vomiting, diarrhea or abdominal pain. - Objective Resuscitation Status: Resuscitation Status FULL:Full Resuscitation MAR Reviewed: Yes Vital Signs & Weight: Vital Signs (12 hours) Temp Pulse Resp BP Pulse Ox 05/03/18 12:27 70 05/03/18 12:16 98.0 F 70 17 167/93 H 95 Weight Weight 311 lb 11.2 oz I&O: 05/02/18 05/03/18 05/04/18 06:59 06:59 06:59 Intake Total 350 1920 Output Total 2000 Balance 350 -80 Result Diagrams: 05/03/18 04:40 05/03/18 03:30 Additional Labs: Accuchecks 05/02/18 05/02/18 20:31 16:16 POC Glucose 363 H 415 H EKG Reviewed by me: Yes (Tele: NSR) Phys Exam - Physical Examination Morbid obesity HEENT: moist MMs, sclera anicteric, oral pharynx no lesions, 2+ tonsils Neck: no nodes, no JVD, supple, full ROM Respiratory: no wheezing, no rales, no rhonchi, clear to auscultation bilateral Cardiovascular: RRR, no rub S1, S2 Gastrointestinal: soft, non-tender, no distention, positive bowel sounds Neurological: moves all 4 limbs Psychiatric: normal affect, A&O x 3 Dx/Plan (1) Chest pain Code(s): R07.9 - CHEST PAIN, UNSPECIFIED Status: Acute Comment: Improved, CTA normal, stress test normal. (2) Cardiomyopathy Code(s): I42.9 - CARDIOMYOPATHY, UNSPECIFIED Status: Acute Comment: LVEF 44 % on stress test. Check 2D echo, consult cardiology. (3) DM type 2 (diabetes mellitus, type 2) Status: Chronic Qualifiers: Diabetes mellitus rn long term care insulin use: with rn long term care use Diabetes mellitus complication status: with hyperglycemia Qualified Code(s): E11.65 - Type 2 diabetes mellitus with hyperglycemia; Z79.4 - care home (current) use of insulin; Z79.4 - continuous churn buttermaker (current) use of insulin; Z79.4 - continuous churn buttermaker (current ) use of insulin; Z79.4 - continuous churn buttermaker (current) use of insulin Comment: continue accuchecks, insulin sliding scale (4) HTN (hypertension) Code(s): I10 - ESSENTIAL (PRIMARY) HYPERTENSION Status: Chronic Qualifiers: Hypertension type: essential hypertension Qualified Code(s): I10 - Essential (primary) hypertension Comment: Monitor vital signs, titrate antihypertensives as needed (5) Morbid obesity Code(s): E66.01 - MORBID (SEVERE) OBESITY DUE TO EXCESS CALORIES Status: Chronic (6) Hypertensive urgency Code(s): I16.0 - HYPERTENSIVE URGENCY Status: Resolved - Plan * . Review of Systems - Review of Systems Constitutional: negative: fever, chills, sweats, weakness, malaise Respiratory: negative: Cough, Shortness of Breath, SOB with Excertion, Pleuritic Pain, Wheezing Cardiovascular: negative: chest pain, palpitations, orthopnea, paroxysmal nocturnal dyspnea, edema, light headedness Genitourinary: negative: Dysuria, Frequency, Incontinence, Hematuria, Retention Skin: negative: Rash, Lesions, Dimitris, Bruising - Medications/Allergies Allergies/Adverse Reactions: Allergies Allergy/AdvReac Type Severity Reaction Status Date / Time No Known Allergies Allergy Verified 05/02/18 01:29 Medications: Current Medications Aspirin (Aspirin) 325 mg PO DAILY [facility] Last Admin: 05/03/18 12:26 Dose: 325 mg Clonidine (Catapres) 0.1 mg PO Q4H PRN PRN Reason: BP>180/100 Dextrose/Water (Dextrose 50%) 25 gm IVP PRN PRN PRN Reason: HYPOGLYCEMIA PROTOCOL Enoxaparin Sodium (Lovenox) 40 mg SC 0900 [facility] Last Admin: 05/02/18 08:41 Dose: 40 mg Glucagon (Glucagon) 1 mg IM PRN PRN PRN Reason: HYPOGLYCEMIA PROTOCOL Lisinopril/HCTZ (Prinizide 20-12.5) 1 tab PO DAILY [facility] Last Admin: 05/03/18 12:27 Dose: 1 tab Dextrose/Water (D5w) 1,000 mls @ 0 mls/hr IV INF PRN PRN Reason: HYPOGLYCEMIA PROTOCOL Insulin Human Isoph/Insulin Regular (Humulin 70/30) 35 units SC BID [facility] Last Admin: 05/03/18 12:27 Dose: 35 unit Insulin Human Lispro (Humalog) 0 units SC .BEDTIME SLIDING SC PRN; Protocol PRN Reason: BEDTIME SLIDING SCALE Last Admin: 05/02/18 06:22 Dose: 5 unit Insulin Human Lispro (Humalog) 0 units SC .MILD SLIDING SCALE PRN PRN Reason: Mild Correctional Scale Last Admin: 05/02/18 17:00 Dose: 6 unit Nitroglycerin (Nitrostat) 0.4 mg PO Q5MIN PRN PRN Reason: Chest Pain Sodium Chloride (Flush - Normal Saline) 10 ml IVF PRN PRN PRN Reason: Saline Flush
[2018-05-03 17:02] LABS: Hemoglobin A1c 11.5 % (4.0-6.0)
[2018-05-03] MEDS: Enoxaparin Sodium 40 MG/0.4 ML SYRINGE SC SCH (17:04)
[2018-05-03 17:21] LABS: Hemoglobin 11.1 g/dL (12.0-16.0); Mean Corpuscular HGB CONC 31.6 g/dL (32.0-36.0); Mean Corpuscular Hemoglobin 25.2 pg (27.0-31.0); Mean Corpuscular Volume 79.6 fL (78.0-98.0); Platelet Count 203 thou/uL (130-400); RBC Distribution Width 15.3 % (11.5-14.5); Red Blood Cell (RBC) Count 4.42 mill/uL (4.20-5.40); White Blood Cell (WBC) Count 9.4 thou/uL (4.8-10.8)
[2018-05-03 17:22] LABS: #Eosinphils 0.1 thou/uL (0.0-0.7); #Monocytes 0.5 thou/uL (0.11-0.59); #Neutrophils 6.8 thou/uL (1.40-6.50); %Basophils 0.1 % (0.0-1.0); %Eosinophils 0.8 % (0.0-10.0); %Monocytes 5.2 % (0.0-10.0); %Neutrophils 72.9 % (42.0-75.0); Hypochromia SLIGHT = 6-15 cells (100X) (0-5/hpf); Mean Platelet Volume 10.4 fL (7.4-10.4); Microcytosis SLIGHT = 6-15 cells (100X) (0-5/hpf); PLT Morphology Comment Appears Adequate
--- NOTE | 2018-05-03 17:26 | CON ---
DATE OF CONSULTATION: 05/03/2018 REASON FOR CONSULTATION: Cardiomyopathy. HISTORY OF PRESENT ILLNESS: Ms. Baig is a 37-year-old woman with previous history of diabetes mellit us who has been seen and evaluated by Dr. Tommy Saleh less than 5 years ago. She recently presen bar with chest pain. Chest pain was described as sharp, worse with cough. She states she has had a URI recently. No other mellowing assessment of precipitating factors present. She underwent coronary angiography in 06/2013 and was not found to have significant coronary disease. PAST MEDICAL HISTORY: Diabetes mellitus, cholecystectomy, tonsillectomy, depression. Previous alexandra l angiography less than 5 years ago. FAMILY HISTORY: Positive for CAD. ALLERGIES: None. MEDICATIONS: Lisinopril, hydrochlorothiazide, NovoLog. REVIEW OF SYSTEMS: Ten point review of systems are reviewed and is as above, otherwise negative. PHYSICAL EXAMINATION: VITAL SIGNS: Blood pressure 160/88, pulse 77, temperature 98. GENERAL: Patient is a pleasant female who is in no acute distress. The patient appears her stated a ge. NEUROLOGIC: The patient is alert and oriented times 3 with no focal neurologic deficits. HEENT: Sclerae without icterus. Mouth has moist mucous membranes with normal pallor. NECK: No JVD. Carotid upstroke brisk. No bruits bilaterally. LUNGS: Clear to auscultation with unlabored respirations. BACK: No scoliosis or kyphosis. CARDIAC: Regular rate and rhythm with normal S1 and S2. No S3 or S4 noted. No significant rubs, mu rmurs, thrills, or gallops noted throughout the precordium. PMI is not displaced. There is no ramila ternal heave. ABDOMEN: Soft, nontender, nondistended. No peritoneal signs present. No hepatosplenomegaly. No ab normal striae. EXTREMITIES: 2+ femoral and 2+ dorsalis pedis pulses. No cyanosis, clubbing, or edema. SKIN: No gross abnormalities. LABORATORY: CK and troponin negative. Stress rest myocardial perfusion study negative for ischemia with LVEF 44%. Echo with Doppler shows LVEF 45%-50%, likely underestimated due to poor endocardial definition. IMPRESSION: 1. Chest pain. 2. Diabetes mellitus. RECOMMENDATIONS: From a CV standpoint, her LVEF at the lower limits are normal. She did have angiog riaz performed less than 5 years ago and there was no significant coronary artery disease. Her ches t pain is not felt to be cardiac. At this point, we would treat her URI type symptoms. Recommend fo llow up with Dr. Tommy Saleh in the next 2-3 weeks. Okay from my standpoint to discharge home.
[2018-05-03 17:57] VITALS: BP 140/92; TEMP 97.6
[2018-05-03] MEDS: HumaLOG 300 UNITS/3 ML VIAL SC PRN (17:58)
--- NOTE | 2018-05-04 00:18 | DIS ---
DATE OF ADMISSION: 05/02/2018 DATE OF DISCHARGE: 05/03/2018 PRIMARY CARE PROVIDER: [facility] [place]. DISCHARGE DIAGNOSES: 1. Hypertensive urgency. 2. Chest pain, likely musculoskeletal. 3. Uncontrolled diabetes mellitus. 4. Hypertensive encephalopathy. 5. Medication noncompliance. CONDITION OF PATIENT ON THE DAY OF DISCHARGE: Stable. I assessed Ms. Baig on the day of discharge. Please refer to my daily progress note for further details regarding this [id number] encounter. DISCHARGE MEDICATIONS: I am sending prescriptions for one vial of NovoLog mix 70/30 vial, patient t o take 60 units 2 times a day. I am also sending a prescription for 10 doses of lisinopril/hydrochlo rothiazide 20/12.5 mg daily. The patient has been advised to follow up with her primary care provide r for refills and further management of her medical comorbidities, including dyslipidemia. HOSPITAL COURSE: Ms. Baig is a pleasant 37-year-old lady who was admitted to [facility] on 05/02/2018 for chest pain and hypertensive urgency. Please refer to Dr. Tao's his tory and physical note dated 05/02/2018 for further details. She was monitored on telemetry floor. She received insulin by sliding scale. She had not taken her medications for several days when she p resented to the emergency room. Her blood pressure was eventually brought under reasonable control. She had a nuclear stress test, which did not show any significant ischemia or scar. Left ventricula r ejection fraction was reported at 44%. She went on to have 2D echocardiogram, which showed 45%-50% left ventricular ejection fraction, may be underestimated secondary to poor endocardial definition. She has been cleared for discharge by Cardiology Service. In the past, she had dyslipidemia, but she is not on any medications for that. She is advised to fol low up with her primary care provider for the same. Please note that she also had a CT angiogram just prior to this admission, which ruled out pulmonary embolism. LABORATORY DATA: On the day of discharge, she has sodium 132, potassium 4.1, creatinine 0.95, hemogl obin A1c 11.5, white count 9,400, hemoglobin 11.1 and platelet count 203,000. Many thanks for allowing me to participate in your patient's care. Please feel free to contact me wi th any questions or concerns. DISCHARGE DESTINATION: Home. TOTAL AMOUNT OF TIME SPENT COORDINATING THIS DISCHARGE: 32 minutes.
== END 2018-05-03 19:05 | disposition home or self-care (01) ==
LOC: ERS 17:12 → 2NO 22:37 → INTOOBSV 22:37
PROVIDERS: ADMIT Hospitalist; ATTEND Hospitalist
DX: I16.0 Hypertensive urgency (principal); I10 Essential (primary) hypertension; R07.9 Chest pain, unspecified; E78.5 Hyperlipidemia, unspecified; F32.9 Major depressive disorder, single episode, unspecified; E11.65 Type 2 diabetes mellitus with hyperglycemia; I42.9 Cardiomyopathy, unspecified; I67.4 Hypertensive encephalopathy; E66.01 Morbid (severe) obesity due to excess calories; Z68.43 Body mass index [BMI] 50.0-59.9, adult; Z79.4 Long term (current) use of insulin; Z79.899 Other long term (current) drug therapy; Z91.14 Patient's other noncompliance with medication regimen
CPT/HCPCS: 36415; 36416; 71045; 71275; 78452; 80048; 80053; 81003; 81015; 81025; 82010; 82553; 83036; 84484; 84703; 85025; 87077; 87086; 87186; 93005; 93017; 93306; 94640; 94760; 96361; 96365; 96367; 96372; 96375; 96376; A9500; G0378; J0360; J0696; J1650; J2405; J2765; J2785; J2930; J7620

== ENCOUNTER 2018-09-03 18:42 | Emergency (ER) | payer SELFPAY ==
[2018-09-03 19:18] LABS: Bilirubin Negative (Negative); Blood, Urine Negative (Negative); Clarity CLEAR (Clear); Glucose, Urine (Dipstick) >=1000 mg/dL (Negative); Leukocyte Negative (Negative); Nitrite Negative (Negative); Protein, Urine (Dipstick) Trace mg/dL (Neg-Trace); Specific Gravity, Urine 1.023 (1.002-1.036); pH, Urine 6.5 (5.0-9.0)
== END 2018-09-03 19:59 | disposition home or self-care (01) ==
LOC: ERS 18:42
DX: E11.65 Type 2 diabetes mellitus with hyperglycemia (principal); I10 Essential (primary) hypertension; N76.2 Acute vulvitis; E11.9 Type 2 diabetes mellitus without complications; E78.5 Hyperlipidemia, unspecified; F32.9 Major depressive disorder, single episode, unspecified; Z79.4 Long term (current) use of insulin; Z79.899 Other long term (current) drug therapy
CPT/HCPCS: 36416; 81003; 87086; 99283

== ENCOUNTER 2019-05-11 18:09 | Emergency (ER) | payer SELFPAY ==
[2019-05-11 19:14] LABS: #Eosinphils 0.1 thou/uL (0.0-0.7); #Lymphocytes 2.4 thou/uL (1.20-3.40); #Monocytes 0.5 thou/uL (0.11-0.59); #Neutrophils 7.9 thou/uL (1.40-6.50); %Basophils 0.3 % (0.0-1.0); %Eosinophils 1.1 % (0.0-10.0); %Monocytes 4.4 % (0.0-10.0); %Neutrophils 72.2 % (42.0-75.0); Hemoglobin 11.9 g/dL (12.0-16.0); Mean Corpuscular HGB CONC 33.1 g/dL (32.0-36.0); Mean Corpuscular Hemoglobin 26.2 pg (27.0-31.0); Mean Corpuscular Volume 79.1 fL (78.0-98.0); Mean Platelet Volume 8.8 fL (7.4-10.4); Platelet Count 245 thou/uL (130-400); RBC Distribution Width 15.4 % (11.5-14.5); Red Blood Cell (RBC) Count 4.56 mill/uL (4.20-5.40); White Blood Cell (WBC) Count 10.9 thou/uL (4.8-10.8)
[2019-05-11 19:34] LABS: ALT (SGPT) 12 U/L (8-55); AST (SGOT) 20 U/L (5-34); Albumin 3.9 g/dL (3.5-5.0); Alkaline Phosphatase 72 U/L (40-110); Anion Gap 16 mmol/L (10-20); BUN (Urea Nitrogen) 13 mg/dL (7.0-18.7); Bilirubin, Total 0.3 mg/dL (0.2-1.2); Calc. Creatinine Clearance 0 mL/min (70-130); Calcium 9.8 mg/dL (7.8-10.44); Carbon Dioxide 25 mmol/L (22-29); Chloride 101 mmol/L (98-107); Estimated GFR-MDRD 69; Globulin 4.6 g/dL (2.4-3.5); Glucose 102 mg/dL (70-105); Lipase 5 U/L (8-78); Potassium 4.3 mmol/L (3.5-5.1); Protein, Total 8.5 g/dL (6.0-8.3); Sodium 138 mmol/L (136-145)
[2019-05-11 19:37] LABS: Bacteria/HPF 4+ HPF (None Seen); Bilirubin Negative (Negative); Blood, Urine 2+ (Negative); Clarity Turbid (Clear); Glucose, Urine (Dipstick) 500 mg/dL (Negative); Leukocyte 500 Leu/uL (Negative); Nitrite Negative (Negative); Protein, Urine (Dipstick) 50 mg/dL (Neg-Trace); RBC/HPF Greater than 50 HPF (0-3); Squamous Epithelial 0-3 HPF (0-3); Urobilinogen Normal mg/dL (Less than 2); WBC/HPF Greater than 50 HPF (0-3)
[2019-05-11 19:41] LABS: Pregnancy Test - Urine (BHCG) Negative (Negative); Pregu Control Background? CLEAR/WHITE (CLR/WHITE); Pregu Control Bar Appear? YES (CONTROL BAR)
[2019-05-11] MEDS ORDERED: Ondansetron ODT 8 MG TAB ONE (20:01)
[2019-05-11] MEDS ORDERED: cefTRIAXone\\ROCEPHIN 1 GM VIAL ONE (20:01)
[2019-05-11] MEDS ORDERED: Lidocaine 1% (PF) 30 ML VIAL ONE (20:02)
== END 2019-05-11 21:00 | disposition home or self-care (01) ==
LOC: ERS 18:09
DX: N39.0 Urinary tract infection, site not specified (principal); E78.5 Hyperlipidemia, unspecified; I10 Essential (primary) hypertension; E11.40 Type 2 diabetes mellitus with diabetic neuropathy, unspecified; F32.9 Major depressive disorder, single episode, unspecified; E78.00 Pure hypercholesterolemia, unspecified; Z79.4 Long term (current) use of insulin; Z79.899 Other long term (current) drug therapy
CPT/HCPCS: 36415; 80053; 81003; 81015; 81025; 83690; 85025; 87077; 87086; 87186; 96372; 99284; J0696; J2001

== ENCOUNTER 2019-08-13 08:05 | Emergency (ER) | payer SELFPAY ==
[2019-08-13] MEDS ORDERED: Ondansetron PF 4 MG/2 ML Vial ONE (08:26)
[2019-08-13] MEDS ORDERED: Famotidine/PF 20 mg/2ml Vial ONE (08:26)
[2019-08-13 08:52] LABS: #Eosinphils 0.2 thou/uL (0.0-0.7); #Lymphocytes 1.8 thou/uL (1.20-3.40); #Monocytes 0.4 thou/uL (0.11-0.59); #Neutrophils 9.6 thou/uL (1.40-6.50); %Basophils 0.3 % (0.0-1.0); %Eosinophils 1.4 % (0.0-10.0); %Lymphocytes 15.3 % (21.0-51.0); %Monocytes 3.2 % (0.0-10.0); %Neutrophils 79.8 % (42.0-75.0); Hemoglobin 12.7 g/dL (12.0-16.0); Mean Corpuscular HGB CONC 33.1 g/dL (32.0-36.0); Mean Corpuscular Hemoglobin 26.3 pg (27.0-31.0); Mean Corpuscular Volume 79.3 fL (78.0-98.0); Mean Platelet Volume 9.5 fL (7.4-10.4); Platelet Count 214 thou/uL (130-400); RBC Distribution Width 15.4 % (11.5-14.5); Red Blood Cell (RBC) Count 4.82 mill/uL (4.20-5.40)
[2019-08-13 08:56] LABS: Bilirubin Negative (Negative); Blood, Urine Trace (Negative); Clarity Turbid (Clear); Glucose, Urine (Dipstick) 150 mg/dL (Negative); Leukocyte Negative Leu/uL (Negative); Nitrite Negative (Negative); Protein, Urine (Dipstick) 100 mg/dL (Neg-Trace); RBC/HPF 0-3 HPF (0-3); Urobilinogen Normal mg/dL (Less than 2)
[2019-08-13 08:56] LABS: BHCG - Serum Negative (NEGATIVE); Pregs Control Background? CLEAR/WHITE (CLR/WHITE); Pregs Control Bar Appear? YES (CONTROL BAR)
[2019-08-13 08:57] LABS: Bacteria/HPF 1+ HPF (None Seen)
[2019-08-13 09:11] LABS: ALT (SGPT) 11 U/L (8-55); AST (SGOT) 14 U/L (5-34); Albumin 4.1 g/dL (3.5-5.0); Alkaline Phosphatase 79 U/L (40-110); Anion Gap 15 mmol/L (10-20); BUN (Urea Nitrogen) 9 mg/dL (7.0-18.7); Bilirubin, Total 0.3 mg/dL (0.2-1.2); Calc. Creatinine Clearance 0 mL/min (70-130); Calcium 9.4 mg/dL (7.8-10.44); Carbon Dioxide 21 mmol/L (22-29); Chloride 101 mmol/L (98-107); Estimated GFR-MDRD 69; Globulin 4.7 g/dL (2.4-3.5); Glucose 267 mg/dL (70-105); Lipase 17 U/L (8-78); Magnesium 1.5 mg/dL (1.6-2.6); Protein, Total 8.8 g/dL (6.0-8.3); Sodium 133 mmol/L (136-145)
== END 2019-08-13 10:32 | disposition home or self-care (01) ==
LOC: ERS 08:05
DX: R11.2 Nausea with vomiting, unspecified (principal); R19.7 Diarrhea, unspecified; E11.9 Type 2 diabetes mellitus without complications; E78.5 Hyperlipidemia, unspecified; E78.00 Pure hypercholesterolemia, unspecified; I10 Essential (primary) hypertension; F32.9 Major depressive disorder, single episode, unspecified; Z79.4 Long term (current) use of insulin; Z79.899 Other long term (current) drug therapy
CPT/HCPCS: 36415; 36416; 80053; 81003; 81015; 83605; 83690; 83735; 84703; 85025; 87086; 87804; 96361; 96372; 96374; 96375; J0500; J2405; S0028

== ENCOUNTER 2021-01-17 00:09 | Inpatient (IN) | payer SELFPAY ==
[2021-01-17 03:56] LABS: Lactic Acid 2.3 mmol/L (0.5-2.2)
[2021-01-17] MEDS ORDERED: Dextrose 5% in Water 1,000 ML IV PRN (05:13)
[2021-01-17] MEDS ORDERED: Dextrose 50% Abboject 50 ML SYRINGE SLOW IVP PRN (05:13)
[2021-01-17] MEDS: Sodium Chloride 0.9% 1,000 ML IV SCH ×2 (05:37→15:01)
[2021-01-17] MEDS: HYDROcodone/Acetaminophen 5/325 mg Tablet PO PRN ×3 (05:39→16:40)
[2021-01-17] MEDS: Piperacillin/Tazobactam 3.375 GM in Sodium Chloride 0.9% 100 ML IVPB SCH ×3 (06:26→22:30)
[2021-01-17 08:02] VITALS: BMI 56.5
[2021-01-17] MEDS: Losartan 25 MG TAB PO SCH (08:40)
[2021-01-17] MEDS: Atorvastatin Calcium 40 MG TAB PO SCH (08:40)
[2021-01-17] MEDS: Pregabalin 50 MG CAP PO SCH ×3 (08:40→20:43)
[2021-01-17] MEDS: Enoxaparin Sodium 40 MG/0.4 ML SYRINGE SC SCH (08:41)
[2021-01-17] MEDS: Empagliflozin 25 MG TAB PO SCH (08:41)
[2021-01-17] MEDS: HumuLIN 70/30 (300 UNITS/3 ML VIAL) SC SCH ×2 (09:07→20:44)
[2021-01-18] MEDS: Sodium Chloride 0.9% 1,000 ML IV SCH (01:18)
[2021-01-18] MEDS: HYDROcodone/Acetaminophen 5/325 mg Tablet PO PRN (04:41)
[2021-01-18] MEDS: Piperacillin/Tazobactam 3.375 GM in Sodium Chloride 0.9% 100 ML IVPB SCH ×2 (05:09→14:16)
[2021-01-18 06:21] LABS: #Basophils 0.1 thou/uL (0.0-0.2); #Eosinphils 0.4 thou/uL (0.0-0.7); #Lymphocytes 2.8 thou/uL (1.20-3.40); #Monocytes 0.3 thou/uL (0.11-0.59); #Neutrophils 3.9 thou/uL (1.40-6.50); %Basophils 0.8 % (0.0-1.0); %Eosinophils 5.7 % (0.0-10.0); %Monocytes 3.9 % (0.0-10.0); %Neutrophils 52.7 % (42.0-75.0); Hemoglobin 9.6 g/dL (12.0-16.0); Mean Corpuscular HGB CONC 33.4 g/dL (32.0-36.0); Mean Corpuscular Volume 80.8 fL (78.0-98.0); Mean Platelet Volume 9.6 fL (7.4-10.4); Platelet Count 193 thou/uL (130-400); RBC Distribution Width 16.7 % (11.5-14.5); Red Blood Cell (RBC) Count 3.55 mill/uL (4.20-5.40); White Blood Cell (WBC) Count 7.4 thou/uL (4.8-10.8)
[2021-01-18 06:42] LABS: Hemoglobin A1c 13.3 % (4.0-6.0)
[2021-01-18 06:46] LABS: Anion Gap 16 mmol/L (10-20); BUN (Urea Nitrogen) 8 mg/dL (7.0-18.7); Calc. Creatinine Clearance 189 mL/min (70-130); Carbon Dioxide 23 mmol/L (22-29); Cardiac Risk 12.3 (Less than 4.5); Chloride 102 mmol/L (98-107); Cholesterol 320 mg/dl (< 200 Desired); Glucose 97 mg/dL (70-105); HDL Cholesterol 26 mg/dL (>60 Neg Risk); Potassium 3.4 mmol/L (3.5-5.1); Sodium 138 mmol/L (136-145); Triglycerides 643 mg/dL (Less than 150)
[2021-01-18] MEDS ORDERED: Fenofibrate 48 MG TAB PO SCH (09:00)
[2021-01-18] MEDS: Losartan 25 MG TAB PO SCH (09:55)
[2021-01-18] MEDS: Pregabalin 50 MG CAP PO SCH ×2 (09:56→14:15)
[2021-01-18] MEDS: Atorvastatin Calcium 40 MG TAB PO SCH (09:56)
[2021-01-18] MEDS: Empagliflozin 25 MG TAB PO SCH (09:57)
[2021-01-18] MEDS: HumuLIN 70/30 (300 UNITS/3 ML VIAL) SC SCH (09:57)
[2021-01-18] MEDS: Enoxaparin Sodium 40 MG/0.4 ML SYRINGE SC SCH (09:57)
[2021-01-18] MEDS ORDERED: Bacitracin 1 PK TOP PRN (15:00)
[2021-01-18 19:30] VITALS: BP 154/91; TEMP 98.1
[2021-01-18] MEDS ORDERED: Fish Oil 1,000 MG CAP PO SCH (21:00)
== END 2021-01-18 18:43 | disposition home or self-care (01) | DRG 638 ==
LOC: ERS 00:09 → T4-B 02:13 → OBSVTOIN 10:51
PROVIDERS: ADMIT Internal Medicine; ATTEND Internal Medicine
PROC: 0HBNXZZ Excision of Left Foot Skin, External Approach (ICD-10-PCS; principal; 2021-01-18)
DX: E11.621 Type 2 diabetes mellitus with foot ulcer (principal); I42.9 Cardiomyopathy, unspecified; Z68.43 Body mass index [BMI] 50.0-59.9, adult; L97.529 Non-pressure chronic ulcer of other part of left foot with unspecified severity; E11.65 Type 2 diabetes mellitus with hyperglycemia; E78.5 Hyperlipidemia, unspecified; E78.00 Pure hypercholesterolemia, unspecified; F32.9 Major depressive disorder, single episode, unspecified; E11.42 Type 2 diabetes mellitus with diabetic polyneuropathy; E66.01 Morbid (severe) obesity due to excess calories; E88.81 Metabolic syndrome and other insulin resistance; Z79.4 Long term (current) use of insulin; Z79.899 Other long term (current) drug therapy; Z90.49 Acquired absence of other specified parts of digestive tract
CPT/HCPCS: 36415; 36416; 80048; 80061; 83036; 83605; 85025; 87070; 87077; 87186; 87205; 96365; 96372; 99285; G0378; J1650; J1815; J2543; J3370; J3490; J7030